=== PATIENT | male | born 1990 | race African-American/Black ===

== ENCOUNTER 2016-12-14 06:41 | Emergency (ER) | payer SELFPAY ==
[2016-12-14 06:54] VITALS: BP 142/92
--- NOTE | 2016-12-14 06:59 | EDM.PDOC ---
ED HPI GENERAL MEDICAL PROBLEM - General Chief Complaint: Genitourinary Problem Stated Complaint: STD Time Seen by Provider: 12/14/16 06:45 - History of Present Illness INITIAL COMMENTS - FREE TEXT/NARRATIVE: HISTORY AND PHYSICAL: History of present illness: Patient 26 year old male presents with dysuria status post intercourse 3 days prior he states it's gotten progressively more uncomfortable to urinate he denies discharge penile or genital lesions or other concern Review of systems: As per history of present illness and below otherwise all systems reviewed and negative. Past medical history: As per history of present illness and as reviewed below otherwise noncontributory. Surgical history: As per history of present illness and as reviewed below otherwise noncontributory. Social history: No reported history of drug or alcohol abuse. Family history: As per history of present illness and as reviewed below otherwise noncontributory. Physical exam: HEENT: Atraumatic, normocephalic, pupils reactive, negative for conjunctival pallor or scleral icterus, mucous membranes moist, throat clear, neck supple, nontender, trachea midline. Lungs: Clear to auscultation, breath sounds equal bilaterally, chest nontender. Heart: S1S2, regular, negative for clicks, rubs, or JVD. Abdomen: Soft, nondistended, nontender. Negative for masses or hepatosplenomegaly. Negative for costovertebral tenderness. Pelvis: Stable nontender. Genitourinary: Deferred. Rectal: Deferred. Extremities: Atraumatic, negative for cords or calf pain. Neurovascular unremarkable. Neuro: Awake, alert, oriented. Cranial nerves II through XII unremarkable. Cerebellum unremarkable. Motor and sensory unremarkable throughout. Exam nonfocal. Diagnostics: UA urine for GC/chlamydia Therapeutics: Rocephin 250 mg IM and azithromycin 1 g by mouth Impression: Urethritis Definitive disposition and diagnosis as appropriate pending reevaluation and review of above. penis Pain Score (Numeric/FACES): 10 - Related Data Allergies Allergy/AdvReac Type Severity Reaction Status Date / Time strawberry Allergy Anaphylactic Verified 02/28/16 02:32 Shock Home Meds: Home Meds [facility] 12/14/16 [History] Past Medical History HEENT History: Reports: None Cardiovascular History: Reports: None Respiratory History: Reports: Asthma Gastrointestinal History: Reports: None Genitourinary History: Reports: None Neurological History: Reports: Seizure Psychiatric History: Reports: None Endocrine/Metabolic History: Reports: None Dermatologic History: Reports: None - Infectious Disease History Infectious Disease History: Reports: None Social & Family History - Family History Family Medical History: Noncontributory - Tobacco Use Smoking Status *Q: Current Every Day Smoker Years of Tobacco use: 11 Packs/Tins Daily: 0.5 - Recreational Drug Use Recreational Drug Use: Yes Drug Use in Last 12 Months: Yes Recreational Drug Type: Reports: Marijuana/Hashish Recreational Drug Use Frequency: Daily ED ROS GENERAL - Review of Systems Review Of Systems: ROS reveals no pertinent complaints other than HPI. ED EXAM, GENERAL - Physical Exam Exam: See Below (See dictation) Course - Vital Signs Last Recorded V/S: Last Vital Signs Temp 36.6 C 12/14/16 06:51 Pulse 70 12/14/16 06:51 Resp 14 12/14/16 06:51 BP 142/92 H 12/14/16 06:51 Pulse Ox 97 12/14/16 06:51 - Orders/Labs/Meds Orders: Active Orders 24 hr Category Date Time Status CHLAMYDIA TRACHOMATIS/GC AMPLF Stat Lab 12/14/16 06:45 Ordered UA W/MICROSCOPIC [URIN] Stat Lab 12/14/16 06:45 Uncollected Departure - Departure Time of Disposition: 06:58 Disposition: Home, Self-Care 01 Condition: Good Clinical Impression: Urethritis - Discharge Information Forms: ED Department Discharge Additional Instructions: The following information is given to patients seen in the emergency department who are being discharged to home. This information is to outline your options for follow-up care. We provide all patients seen in our emergency department with a follow-up referral. The need for follow-up, as well as the timing and circumstances, are variable depending upon the specifics of your emergency department visit. If you don't have a primary care physician on staff, we will provide you with a referral. We always advise you to contact your personal physician following an emergency department visit to inform them of the circumstance of the visit and for follow-up with them and/or the need for any referrals to a consulting specialist. The emergency department will also refer you to a specialist when appropriate. This referral assures that you have the opportunity for followup care with a specialist. All of these measure are taken in an effort to provide you with optimal care, which includes your followup. Under all circumstances we always encourage you to contact your private physician who remains a resource for coordinating your care. When calling for followup care, please make the office aware that this follow-up is from your recent emergency room visit. If for any reason you are refused follow-up, please contact the [facility] emergency department at and asked to speak to the emergency department charge nurse. [facility] [address] [place] [id number] Follow-up primary medical doctor/clinic as discussed return as needed as discussed - My Orders Last 24 Hours: My Active Orders 12/14/16 06:45 CHLAMYDIA TRACHOMATIS/GC AMPLF Stat UA W/MICROSCOPIC [URIN] Stat - Assessment/Plan Last 24 Hours: My Active Orders 12/14/16 06:45 CHLAMYDIA TRACHOMATIS/GC AMPLF Stat UA W/MICROSCOPIC [URIN] Stat
[2016-12-14] MEDS ORDERED: cefTRIAXone 250 MG Vial IM ONE (07:03)
[2016-12-14] MEDS ORDERED: Azithromycin 250 MG Tab PO ONE (07:03)
[2016-12-14] MEDS ORDERED: Lidocaine 1% 2 ML ONE (07:14)
== END 2016-12-14 07:40 | disposition home or self-care (01) ==
LOC: MW.ED 06:41
DX: N34.2 Other urethritis (principal); J45.909 Unspecified asthma, uncomplicated; F17.210 Nicotine dependence, cigarettes, uncomplicated; Z91.018 Allergy to other foods
CPT/HCPCS: 81001; 87491; 87591; 96372; 99283; A9270; J0696

== ENCOUNTER 2016-12-23 01:34 | Emergency (ER) | payer SELFPAY ==
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
== END 2016-12-23 01:59 | disposition home or self-care (01) ==
LOC: MW.ED 01:34
CPT/HCPCS: 99282; 99284